=== PATIENT | male | born 1980 | race Caucasian/White ===

== ENCOUNTER 2016-10-11 03:26 | Emergency (ER) | payer SELFPAY ==
--- NOTE | 2016-10-11 04:24 | ED Physician Chart ---
Chief Complaint/HPI - Patient Information Date Seen:: 10/11/16 Time Seen:: 04:10 Chief Complaint:: Acid reflux after dinner last evening. History of Present Illness:: Pt is Occitan speaking. Interpretation is provided by Jennifer manning [employer]. Pt experiences acid reflux when lying down for the past 2 days. Pt went to bed shortly after dinner last evening. Pt finished dinner at about 8 pm and lay down in bed by about 9 pm. He had acid reflux with acid taste in his month. His acid reflux improved after getting up and staying in upright position. No shortness of breath. No cough. No fever. Pt had transient nausea. No vomiting. Pt denies any chest cadet or discomfort. No abdominal pain. Pt had much greasy/ spicy food. Pt also had beer consumption during dinner as well. Pt has tried ranitidine that helps his acid reflux. However, pt requests to be treated with a different medication. Allergies:: Allergies Allergy/AdvReac Type Severity Reaction Status Date / Time No Known Allergies Allergy Verified 10/11/16 03:46 Vitals:: Vital Signs - 8 hr 10/11/16 03:30 Temp 97.6 F HR 70 RR 20 BP 124/86 O2 Sat % 98 Historian:: Patient Family MD/PCP:: Unknown LMP:: N/A Review:: Nurse's Note Reviewed Review of Systems - Review of Systems General/Constitutional: No fever, No chills, No weight loss, No weakness, No edema, No loss of appetite Skin: No skin lesions, No rash, No bruising Head: No headache Eyes: No pain, No diplopia ENT: No earache, No nasal drainage, No sore throat Neck: No neck pain, No swelling, No thyromegaly, No stiffness, No mass noted Cardio Vascular: No chest pain, No palpitations, No edema Pulmonary: No SOB, No cough, No wheezing GI: Nausea (transient), No vomiting, No diarrhea, No pain G/U: No dysuria, No frequency, No hematuria Musculoskeletal: No bone or joint pain, No back pain, No muscle pain Endocrine: No polyuria, No polydipsia Psychiatric: No prior psych history Hematopoietic: No bruising, No lymphadenopathy Allergic/Immuno: No urticaria, No angioedema Neurological: No syncope, No focal symptoms, No weakness, No paresthesia, No headache, No dizziness, No confusion Past Medical History - Past Medical History Past Medical History: No significant medical hx Family History: None Social History: Non Smoker, Alcohol (4-5 beers daily with last use at about 8 pm yesterday. Pt has been informed about health risks associated with alcohol use and has been advised to quit. Pt acknowledges understanding.), No Drug Use, , Employed, Other (lives with his .) Employment:: [employer] Surgical History: other (Laceration repair in neck about 15 y/a.) Psychiatricy History: None Medication: Reviewed Family Medical History - Family Member Mother History Unknown: Yes Ethnicity: Physical Exam - Physical Examination General/Constitutional: Awake, Well-developed, well-nourished, Alert, No distress, GCS 15, Non-toxic appearing, Ambulatory Other Gen/Cons comments:: Breathes comfortably even with mouth closed, speaks clearly, interacts normally , and ambulates without difficulty. Head: Atraumatic Eyes: Lids, conjuctiva normal, PERRL, EOMI Skin: Nl inspection, No rash, No skin lesions, No ecchymosis, Well hydrated, No lymphadenopathy ENMT: External ears, nose nl, Nasal exam nl, Lips, teeth, gums nl, Oropharynx nl , Tonsils nl Neck: Nontender, Full ROM w/o pain, No JVD, No nuchal rigidity, No mass, No stridor Respiratory: Nl effort/Exclusion, Clear to Auscultation, No Wheeze/Rhonchi/Rales Cardio Vascular: RRR, No murmur, gallop, rubs GI: No tenderness/rebounding/guarding, No organomegaly, No hernia, Normal BS's, Nondistended, No mass/bruits Other GI comments:: Abdomen is soft. Extremities: No tenderness or effusion, Full ROM, normal strength in all extremities, No edema, Normal digits & nails Neuro/Psych: Alert/oriented (oriented x 3), Judgement/insight normal, Mood normal, Normal gait, No focal deficits ED Septic Shock - . Is Septic Shock (SBP<90, OR Lactate>4 mmol\L) present?: No - <6hrs of presentation: Vital Signs: Vital Signs - 8 hr 10/11/16 03:30 Temp 97.6 F HR 70 RR 20 BP 124/86 O2 Sat % 98 Reassessment (Disposition) - Reassessment Reassessment:: [id number] Pt has been well without any acid reflux symptoms, dyspnea, or any abdominal discomfort. Pt requests to go home now and does not want further observation/management in hospital. Aftercare instructions have been given with interpretation by Phyllis. Reassessment Condition:: Improved - Diagnosis Diagnosis:: Gastroesophageal reflux disease (GERD), stable and currently asymptomatic. - Aftercare/Follow up Instructions Aftercare/Follow-Up Instructions:: Refer to Discharge Instructions Notes:: Avoid eating too close to bedtime. Dinner should be finished at least 3 hours before lying down in bed. Keep head of bed at 60 degree. Avoid fatty greasy food, chocolate, alcoholic beverages, etc. F/U with Dr. Massey or PCP of pt's choice in 1-2 days. Return to ER immediately if condition worsens or if any further questions/problems. Medication Prescribed:: Omeprazole 20 mg cap one cap po daily as directed. D14 R-0 - Patient Disposition Discharge/Transfer:: Home Time:: 05:10 Condition at Disposition:: Stable, Improved ED Discharge Plan - Patient Disposition Admit/Discharge/Transfer: PT DISCHARGED HOME Condition at Disposition: Unchanged Instructions: Diet for Gastroesophageal Reflux Disease, Adult, Gastroesophageal Reflux Disease, Adult
== END 2016-10-11 05:12 | disposition home or self-care (01) ==
LOC: ER 03:26
DX: K21.9 Gastro-esophageal reflux disease without esophagitis (principal)